=== PATIENT | female | born 1990 | race Caucasian/White ===

== ENCOUNTER → 2017-04-04 | Outpatient (REF) | payer BC ==
[~2017-04-04] MED LIST: MEDR15VL IM
== END ==
LOC: M LAB REF 13:09
PROVIDERS: ATTEND Physician Assistant
DX: R30.0 Dysuria (principal)

== ENCOUNTER 2017-05-20 06:08 | Day surgery (SDC) | payer BC ==
[~2017-05-20] VITALS: Ht 167.6 cm; Wt 59.0 kg
[2017-05-20] MEDS ORDERED: LR 1,000 ML IV ONE (06:30)
[2017-05-20 06:36] LABS: CONTROL LINE UCG INT CTR LINE PRESENT
[2017-05-20] MEDS ORDERED: LIDOCAINE W/EPINEPHRINE 1% 20ML VIAL As Ordered ONE (07:13)
[2017-05-20] MEDS ORDERED: CIPRODEX OTIC SUSP 7.5ML As Ordered ONE (07:13)
[2017-05-20] MEDS ORDERED: EPINEPHrine 1MG/ML INJ 30ML MD-VIAL As Ordered ONE (07:13)
[2017-05-20] MEDS ORDERED: fentaNYL 100 MCG/2 ML INJECTION (J3010) As Ordered ONE ×2 (07:57→08:00)
[2017-05-20] MEDS ORDERED: MIDAZOLAM INJ 2 MG/2 ML VIAL (J2250) As Ordered ONE (07:57)
[2017-05-20] MEDS ORDERED: METOCLOPRAMIDE INJ 10MG/2ML VIAL (J2765) As Ordered ONE (07:57)
[2017-05-20] MEDS ORDERED: dexameTHASONE 4 MG/ML 1ML VIAL (J1100) As Ordered ONE (07:58)
[2017-05-20] MEDS ORDERED: PROPOFOL 200 MG/20 ML VIAL As Ordered ONE (08:00)
[2017-05-20] MEDS ORDERED: LIDOCAINE 2% INJ 100 MG/5 ML SDV (FOR ANES.) As Ordered ONE (08:00)
[2017-05-20] MEDS ORDERED: ACETAMINOPHEN/CODEINE 12.5 ML UDC As Ordered ONE (09:17)
[2017-05-20] MEDS ORDERED: PERCOCET 5MG/325MG TAB PO PRN (09:45)
[2017-05-20] MEDS ORDERED: LR 1,000 ML IV SCH ×2 (09:45)
[2017-05-20] MEDS ORDERED: fentaNYL 100 MCG/2 ML INJECTION (J3010) IV PRN (09:45)
[2017-05-20] MEDS ORDERED: ONDANSETRON 4MG/2ML VIAL (J2405) IV PRN (09:45)
[2017-05-20] MEDS ORDERED: HYDROmorphone HCL 1 MG/ML SYRINGE (J1170) IV PRN (09:45)
[2017-05-20] MEDS ORDERED: ACETAMINOPHEN/CODEINE 12.5 ML UDC PO PRN (10:00)
[2017-05-20 12:10] VITALS: BP 112/57
--- NOTE | 2017-05-20 15:08 | RO ---
DATE OF PROCEDURE: 05/20/2017 PREPROCEDURE DIAGNOSIS: Chronic left tympanic membrane perforation. POSTPROCEDURE DIAGNOSIS: Chronic left tympanic membrane perforation. PROCEDURE: Left tympanostomy. SURGEON: Henrik Vicente MD [place] RE[employer]SE WINDER: ANESTHESIA: General. DESCRIPTION OF PROCEDURE: Under general anesthesia with the patient intubated, the patient was draped in the usual manner. I infiltrated the ear with the lidocaine and epinephrine, cleaned with ear with Betadine and saline. There was a small posterior perforation. I made a posterior tympanotomy incision. I elevated the flap. I dissected the flap. I filled the middle ear with Ciprodex. I then made a postauricular incision. I harvested a temporalis fascia graft. I cut it to the appropriate size. I then tucked that beneath the tympanic membrane and then returned the flaps to the original position. I covered the lateral aspect of the drum with Gelfoam. I closed the postauricular incision with #3-0 chromic, #3-0 Prolene. otopore was put in the ear canal. Less than 1 mL estimated blood loss. The patient tolerated the procedure well and was extubated and transferred to the recovery room in excellent condition. GENEVIEVE
== END 2017-05-20 12:15 | disposition home or self-care (01) ==
LOC: M SDC 06:08
PROVIDERS: ATTEND Otolaryngology
DX: H72.2X2 Other marginal perforations of tympanic membrane, left ear (principal); J45.909 Unspecified asthma, uncomplicated; Z88.8 Allergy status to other drugs, medicaments and biological substances; Z79.3 Long term (current) use of hormonal contraceptives
CPT/HCPCS: 69631; 84703; J1100; J2250; J2765; J3010

== ENCOUNTER → 2017-09-30 | Outpatient (REF) | payer BC | LOC: M LAB REF 12:13 | DX: J02.9 Acute pharyngitis, unspecified (principal) | CPT/HCPCS: 87081 ==

== ENCOUNTER → 2018-03-26 | Outpatient (CLI) | payer BC | LOC: M WUC 17:14 | DX: R53.83 Other fatigue (principal); Z53.9 Procedure and treatment not carried out, unspecified reason | CPT/HCPCS: 36415 ==

== ENCOUNTER → 2018-03-27 | Outpatient (CLI) | payer BC ==
[2018-03-27 18:15] LABS: BASO % 0.6 % (0.0-1.0); EOS # 0.2 10^3/uL (0.0-0.50); EOS % 2.5 % (0.0-3.0); HEMATOCRIT 46.6 % (36.0-47.0); HEMOGLOBIN 15.2 g/dl (12.0-15.5); IMMATURE GRANULOCYTE % 0.1 % (0-3.0); LYMPH # 2.6 10^3/uL (1.5-6.5); MEAN CORPUSCULAR HEMOGLOBIN 29.7 pg (27.0-33.0); MEAN CORPUSCULAR HGB CONC 32.6 g/dl (32.0-36.5); MEAN CORPUSCULAR VOLUME 91.2 fl (80.0-96.0); MONO # 0.4 10^3/uL (0.0-0.8); MONO % 6.1 % (0.0-5.0); NEUTROPHILS # 3.9 10^3/uL (1.8-7.7); NEUTROPHILS % 54.7 % (36.0-66.0); PLATELET COUNT, AUTOMATED 232 10^3/uL (150-450); RED BLOOD COUNT 5.11 10^6/uL (4.00-5.40); RED CELL DISTRIBUTION WIDTH 12.7 % (11.5-14.5); WHITE BLOOD COUNT 7.1 10^3/uL (4.0-10.0)
== END ==
LOC: M SMT 13:24
DX: R53.83 Other fatigue (principal)
CPT/HCPCS: 84443

== ENCOUNTER 2018-04-30 07:33 | Day surgery (SDC) | payer BC ==
[2018-04-30] MEDS: LR 1,000 ML IV (08:07)
[2018-04-30 08:25] LABS: CONTROL LINE UCG INT CTR LINE PRESENT; URINE PREG TEST NEGATIVE (NEGATIVE)
[2018-04-30] MEDS ORDERED: ONDANSETRON 4MG/2ML VIAL (J2405) As Ordered (09:22)
[2018-04-30] MEDS ORDERED: LIDOCAINE 2% INJ 100 MG/5 ML SDV (FOR ANES.) As Ordered (09:22)
[2018-04-30] MEDS ORDERED: PROPOFOL 200 MG/20 ML VIAL As Ordered (09:22)
[2018-04-30] MEDS ORDERED: dexameTHASONE 4 MG/ML 1ML VIAL (J1100) As Ordered ×2 (09:22→09:52)
[2018-04-30] MEDS ORDERED: MIDAZOLAM INJ 2 MG/2 ML VIAL (J2250) As Ordered (09:52)
[2018-04-30] MEDS ORDERED: fentaNYL 100 MCG/2 ML INJECTION (J3010) As Ordered ×2 (09:52→10:36)
[2018-04-30] MEDS ORDERED: METOCLOPRAMIDE INJ 10MG/2ML VIAL (J2765) As Ordered (10:10)
[2018-04-30] MEDS: LIDOCAINE W/EPINEPHRINE 1% 20ML VIAL As Ordered (10:15)
[2018-04-30] MEDS: CIPRODEX OTIC SUSP 7.5ML As Ordered (10:45)
[2018-04-30] MEDS: EPINEPHrine 1MG/ML INJ 30ML MD-VIAL As Ordered (10:45)
[2018-04-30] MEDS ORDERED: ACETAMINOPHEN/CODEINE 300MG/30MG 12.5 ML UDC As Ordered (12:25)
[2018-04-30] MEDS: ACETAMINOPHEN/CODEINE 300MG/30MG 12.5 ML UDC PO (12:28)
[2018-04-30] MEDS ORDERED: HYDROMORPHONE HCL 0.5 MG/ 0.5 ML SYRINGE (J1170 PER 1) IV (12:30)
[2018-04-30] MEDS ORDERED: ACETAMINOPH W/CODEINE #3 TAB UD PO (12:30)
[2018-04-30] MEDS ORDERED: PERCOCET 5MG/325MG TAB PO (12:30)
[2018-04-30] MEDS ORDERED: ONDANSETRON 4MG/2ML VIAL (J2405) IV (12:30)
[2018-04-30] MEDS ORDERED: LR 1,000 ML IV ×2 (12:30)
[2018-04-30] MEDS ORDERED: fentaNYL 100 MCG/2 ML INJECTION (J3010) IV (12:30)
[2018-04-30] MEDS ORDERED: ACETAMINOPHEN/CODEINE 300MG/30MG 12.5 ML UDC PO (13:15)
== END 2018-04-30 14:50 | disposition home or self-care (01) ==
LOC: M SDC 07:33
DX: H72.92 Unspecified perforation of tympanic membrane, left ear (principal); K59.00 Constipation, unspecified; G43.909 Migraine, unspecified, not intractable, without status migrainosus; J45.909 Unspecified asthma, uncomplicated
CPT/HCPCS: 69631

== ENCOUNTER → 2018-07-10 | Outpatient (REF) | payer BC | LOC: M LAB REF 12:40 | DX: R30.0 Dysuria (principal) | CPT/HCPCS: 87186 ==

== ENCOUNTER → 2018-08-24 | Outpatient (REF) | payer BC ==
[~2018-08-24] MED LIST changes: +MEDR150I10 IM; -MEDR15VL IM
[2018-08-24 14:27] LABS: CHLAMYDIA DNA AMPLIFICATION NEGATIVE (NEGATIVE); GC DNA AMPLIFICATION NEGATIVE (NEGATIVE)
== END ==
LOC: M LAB REF 11:54
PROVIDERS: ATTEND Physician Assistant
DX: R82.79 Other abnormal findings on microbiological examination of urine (principal)

== ENCOUNTER → 2020-02-11 | Outpatient (CLI) | payer BC ==
[2020-02-11 09:52] LABS: BASO % 0.5 % (0.0-1.0); EOS # 0.1 10^3/uL (0.0-0.5); EOS % 1.2 % (0.0-3.0); HEMATOCRIT 42.5 % (36.0-47.0); HEMOGLOBIN 13.8 g/dl (12.0-15.5); LYMPH # 1.9 10^3/uL (1.5-5.0); LYMPH % 24.8 % (24.0-44.0); MEAN CORPUSCULAR HEMOGLOBIN 29.6 pg (27.0-33.0); MEAN CORPUSCULAR HGB CONC 32.5 g/dl (32.0-36.5); MONO # 0.4 10^3/uL (0.0-0.8); MONO % 5.6 % (0.0-5.0); NEUTROPHILS # 5.2 10^3/uL (1.5-8.5); NEUTROPHILS % 67.6 % (36.0-66.0); PLATELET COUNT, AUTOMATED 193 10^3/uL (150-450); RED BLOOD COUNT 4.67 10^6/uL (4.00-5.40); WHITE BLOOD COUNT 7.7 10^3/uL (4.0-10.0)
[2020-02-11 10:37] LABS: ALBUMIN 4.3 GM/DL (3.2-5.2); ALT/SGPT 22 U/L (12-78); BILIRUBIN,TOTAL 0.7 MG/DL (0.2-1.0); BLOOD UREA NITROGEN 11 MG/DL (7-18); CALCIUM LEVEL 9.5 MG/DL (8.5-10.1); CARBON DIOXIDE LEVEL 24 MEQ/L (21-32); CHLORIDE LEVEL 106 MEQ/L (98-107); FREE T4 1.14 NG/DL (0.76-1.46); GLOMERULAR FILTRATION RATE > 60.0 (>60); GLUCOSE, FASTING 76 MG/DL (70-100); POTASSIUM SERUM 4.3 MEQ/L (3.5-5.1); SODIUM LEVEL 137 MEQ/L (136-145); THYROID STIMULATING HORMONE 0.863 uIU/ML (0.358-3.740); TOTAL 25(OH) VITAMIN D 22.9 NG/ML (30.0-100.0); TOTAL PROTEIN 8.5 GM/DL (6.4-8.2)
== END ==
LOC: M WUC 08:32
PROVIDERS: ATTEND Physician Assistant
DX: F34.1 Dysthymic disorder (principal)

== ENCOUNTER → 2020-02-25 | Outpatient (REF) | payer BC | LOC: M WUC 11:33 | PROVIDERS: ATTEND Nurse Practitioner Family | DX: N39.0 Urinary tract infection, site not specified (principal) ==

== ENCOUNTER → 2020-04-11 | Outpatient (REF) | payer BC ==
[2020-04-11 21:55] LABS: CHLAMYDIA DNA AMPLIFICATION NEGATIVE (NEGATIVE); GC DNA AMPLIFICATION NEGATIVE (NEGATIVE)
== END ==
LOC: M WUC 12:49
PROVIDERS: ATTEND Physician Assistant
DX: R30.0 Dysuria (principal)

== ENCOUNTER → 2020-12-13 | Outpatient (REF) | payer BC | LOC: M WUC 15:58 | PROVIDERS: ATTEND Physician Assistant | DX: R30.0 Dysuria (principal) ==

== ENCOUNTER → 2020-12-16 | Outpatient (REF) | payer BC | LOC: M LAB REF 19:05 | PROVIDERS: ATTEND Nurse Practitioner Family | DX: R30.0 Dysuria (principal) ==

== ENCOUNTER → 2021-06-20 | Outpatient (CLI) | payer BC ==
--- NOTE | 2021-06-20 12:03 | REP ---
INDICATION: DYSPNEA, UNSPECIFIED. COMPARISON: None. TECHNIQUE: PA and lateral FINDINGS: The superior mediastinal structures are midline. The cardiac silhouette is unremarkable in size, shape, and position. The diaphragmatic surfaces of the lungs are regular, and the costophrenic angles are clear. The pulmonary lin are clear. The imaged osseous structures are intact. IMPRESSION: There is no acute cardiopulmonary disease. <Electronically signed by Radames Diaz > 06/20/21 [id number]
== END ==
LOC: M PLAIMG 11:27
PROVIDERS: ATTEND Physician Assistant
DX: R06.00 Dyspnea, unspecified (principal)

== ENCOUNTER → 2021-07-03 | Outpatient (CLI) | payer BC ==
[~2021-07-03] MED LIST changes: +METHACHOLINE KIT (J7674) INH ONE
--- NOTE | 2021-07-03 13:09 | PFTRPT ---
Site: [facility], [address] [place], [address] ID: [id number] Name: LYNETTE LANG Visit Date: 07/03/2021 Second ID: [id number] Referring Doctor: FADI Wilkins, Ntae Santiago Reviewing Doctor: Pratik Saleh MD Candle Molder Hand: Rao PACHECO RRT Age: 31 : 1990 Sex: Female Race: Height: 65.50 Inches Weight: 150.00 Lbs BSA: 1.76 Order IDs: [id number] Requested Test(s): <RESP-PFT.METH CHAL> Diagnosis: R06.00 of albuterol for post bronchodilator. Review Status: Not Reviewed Pre-Bronch Post-Bronch Pred Actual %Pred Actual %Chng SPIROMETRY FVC (L) 3.96 3.56 89 3.59 FEV1 (L) 3.33 3.09 92 3.01 -2 FEV1/FVC (%) 84 87 103 84 -3 FEF 25% (L/sec) 5.85 6.12 104 5.53 -9 FEF 50% (L/sec) 4.49 4.50 100 4.12 -8 FEF 75% (L/sec) 1.89 1.62 85 1.48 -9 FEF 25-75% (L/sec) 3.54 3.52 99 3.32 -5 FEF Max (L/sec) 7.24 6.14 84 5.71 -6 FIVC (L) 3.32 3.41 2 FIF 50% (L/sec) 4.05 3.63 89 3.74 3 FIF Max (L/sec) 3.82 3.77 -1 Expiratory Time (sec) 6.31 6.35 Back Extrap Vol (L) 0.12 0.11 -13 Time To FEFmax (sec) 0.116 0.117 1
== END ==
LOC: M CARPUL 12:20
PROVIDERS: ATTEND Physician Assistant
DX: R06.00 Dyspnea, unspecified (principal)
CPT/HCPCS: 94070; 95070; J7674

== ENCOUNTER → 2021-07-10 | Outpatient (REF) | payer BC ==
[~2021-07-10] MED LIST changes: +ADVA230A INH; +AJOV225I SC; +ALBU8.5H INH; +ALIG10.5 PO; +CLAR5SYP5 PO; +IBUP0.77 PO; -METHACHOLINE KIT (J7674) INH ONE; +MIRA3350 PO; +OMEP40CA5 PO; +RIME75TA SL
== END ==
LOC: M WUC 11:03
PROVIDERS: ATTEND Physician Assistant
DX: R30.0 Dysuria (principal)

== ENCOUNTER → 2021-07-31 | Outpatient (CLI) | payer BC ==
[~2021-07-31] MED LIST changes: -ADVA230A INH; -AJOV225I SC; -ALBU8.5H INH; -ALIG10.5 PO; -CLAR5SYP5 PO; -IBUP0.77 PO; -MIRA3350 PO; -OMEP40CA5 PO; -RIME75TA SL
--- NOTE | 2021-07-31 12:32 | REP ---
INDICATION: ABDOMINAL PAIN, ABDOMINAL DISTENSION COMPARISON: None. TECHNIQUE: Upright view of the chest with supine and upright views of the abdomen and pelvis. FINDINGS: Frontal upright view of the chest demonstrates no acute cardiopulmonary process or free air below the diaphragm to suspect pneumoperitoneum. Supine and upright views of the abdomen and pelvis demonstrate nonspecific bowel gas pattern without obstruction or perforation. No organomegaly. No abnormal calcifications. Skeletal structures normal for age. IMPRESSION: Nonspecific bowel gas pattern. <Electronically signed by Yosef Shelton > 07/31/21 [id number]
[2021-07-31 16:08] LABS: BASO % 0.5 % (0.0-1.0); EOS # 0.2 10^3/uL (0.0-0.5); EOS % 2.2 % (0.0-3.0); HEMATOCRIT 41.6 % (36.0-47.0); HEMOGLOBIN 13.5 g/dl (12.0-15.5); LYMPH # 2.3 10^3/uL (1.5-5.0); LYMPH % 30.2 % (24.0-44.0); MEAN CORPUSCULAR HEMOGLOBIN 29.7 pg (27.0-33.0); MEAN CORPUSCULAR HGB CONC 32.5 g/dl (32.0-36.5); MEAN CORPUSCULAR VOLUME 91.6 fl (80.0-96.0); MONO # 0.6 10^3/uL (0.0-0.8); MONO % 7.5 % (2.0-8.0); NEUTROPHILS # 4.6 10^3/uL (1.5-8.5); NEUTROPHILS % 59.2 % (36.0-66.0); PLATELET COUNT, AUTOMATED 257 10^3/uL (150-450); RED BLOOD COUNT 4.54 10^6/uL (4.00-5.40); WHITE BLOOD COUNT 7.8 10^3/uL (4.0-10.0)
[2021-07-31 16:44] LABS: ALBUMIN 4.2 GM/DL (3.2-5.2); ALT/SGPT 26 U/L (12-78); AMYLASE 76 U/L (25-115); BILIRUBIN,TOTAL 0.4 MG/DL (0.2-1.0); BLOOD UREA NITROGEN 8 MG/DL (7-18); CALCIUM LEVEL 9.7 MG/DL (8.5-10.1); CARBON DIOXIDE LEVEL 27 MEQ/L (21-32); CHLORIDE LEVEL 109 MEQ/L (98-107); CREATININE FOR GFR 0.84 MG/DL (0.55-1.30); GLOMERULAR FILTRATION RATE > 60.0 (>60); GLUCOSE, FASTING 87 MG/DL (70-100); HCG, SERUM QUANTITATIVE < 1.0 MIU/ML; LIPASE 246 U/L (73-393); POTASSIUM SERUM 4.2 MEQ/L (3.5-5.1); SODIUM LEVEL 141 MEQ/L (136-145)
== END ==
LOC: M WUC 11:46
PROVIDERS: ATTEND Physician Assistant
DX: R10.84 Generalized abdominal pain (principal); R14.0 Abdominal distension (gaseous)

== ENCOUNTER → 2021-08-01 | Outpatient (CLI) | payer BC ==
--- NOTE | 2021-08-01 10:13 | REP ---
INDICATION: GENERALIZED PAIN TECHNIQUE: Real time B-mode encarnacion scale ultrasound examination using curved array transducer. FINDINGS: Liver, spleen, and pancreas are normal in contour, size, echogenicity, and overall appearance. No focal hepatic, splenic or pancreatic lesions are identified. Gallbladder is normal without gallstones, wall thickening, or pericholecystic fluid. No biliary ductal dilatation is appreciated and the common bile duct measures 2.0 mm in diameter. Splenic index: 267 The bilateral kidneys are normal in reniform shape without hydronephrosis or obvious abnormality. Right kidney measures 9.8 x 4.1 x 4.2 cm. Left kidney measures 11.1 x 3.8 x 4.5 cm. Abdominal aorta appears normal and measures 1.4 cm maximal diameter. No ascites in the visualized abdomen. IMPRESSION: Essentially normal age-appropriate complete abdominal ultrasound. <Electronically signed by Yosef Shelton > 08/01/21 [id number]
== END ==
LOC: M RAD 09:27
PROVIDERS: ATTEND Physician Assistant
DX: R10.84 Generalized abdominal pain (principal); R14.0 Abdominal distension (gaseous)

== ENCOUNTER → 2021-08-07 | Outpatient (CLI) | payer BC ==
[2021-08-07 16:08] LABS: BASO % 0.5 % (0.0-1.0); EOS # 0.1 10^3/uL (0.0-0.5); EOS % 1.2 % (0.0-3.0); HEMATOCRIT 41.6 % (36.0-47.0); HEMOGLOBIN 13.5 g/dl (12.0-15.5); LYMPH # 2.3 10^3/uL (1.5-5.0); LYMPH % 34.8 % (24.0-44.0); MEAN CORPUSCULAR HEMOGLOBIN 29.2 pg (27.0-33.0); MEAN CORPUSCULAR HGB CONC 32.5 g/dl (32.0-36.5); MONO # 0.4 10^3/uL (0.0-0.8); MONO % 6.5 % (2.0-8.0); NEUTROPHILS # 3.8 10^3/uL (1.5-8.5); NEUTROPHILS % 56.7 % (36.0-66.0); PLATELET COUNT, AUTOMATED 235 10^3/uL (150-450); RED BLOOD COUNT 4.62 10^6/uL (4.00-5.40); WHITE BLOOD COUNT 6.7 10^3/uL (4.0-10.0)
[2021-08-07 16:46] LABS: ALBUMIN 4.3 GM/DL (3.2-5.2); ALT/SGPT 21 U/L (12-78); BILIRUBIN,DIRECT 0.2 MG/DL (0.0-0.2); BILIRUBIN,TOTAL 0.5 MG/DL (0.2-1.0); BLOOD UREA NITROGEN 9 MG/DL (7-18); CALCIUM LEVEL 10.3 MG/DL (8.5-10.1); CARBON DIOXIDE LEVEL 26 MEQ/L (21-32); CHLORIDE LEVEL 106 MEQ/L (98-107); CREATININE FOR GFR 0.76 MG/DL (0.55-1.30); FREE T4 1.27 NG/DL (0.76-1.46); GLOMERULAR FILTRATION RATE > 60.0 (>60); GLUCOSE, FASTING 78 MG/DL (70-100); LIPASE 200 U/L (73-393); POTASSIUM SERUM 3.9 MEQ/L (3.5-5.1); SODIUM LEVEL 142 MEQ/L (136-145); TOTAL PROTEIN 8.1 GM/DL (6.4-8.2)
== END ==
LOC: M WUC 14:48
PROVIDERS: ATTEND Physician Assistant
DX: R10.13 Epigastric pain (principal)

== ENCOUNTER → 2021-09-15 | Outpatient (CLI) | payer BC ==
[~2021-09-15] MED LIST changes: +ADVA230A INH; +AJOV225I SC; +ALBU8.5H INH; +ALIG10.5 PO; +CLAR5SYP5 PO; +IBUP0.77 PO; +MIRA3350 PO; +OMEP40CA5 PO; +RIME75TA SL
== END ==
LOC: M LABSMTC 10:03
PROVIDERS: ATTEND Anesthesiology
DX: Z01.818 Encounter for other preprocedural examination (principal); Z11.52 Encounter for screening for COVID-19

== ENCOUNTER 2021-09-20 11:51 | Day surgery (SDC) | payer BC ==
[~2021-09-20] VITALS: Ht 165.1 cm; Wt 67.5 kg
[~2021-09-20 11:51] MED LIST changes: +NS 1,000 ML IV ONE
[2021-09-20] MEDS ORDERED: propofoL 200 MG/20 ML VIAL As Ordered ONE (13:30)
[2021-09-20] MEDS ORDERED: GLYCOPYRROLATE INJ 0.2 MG/ML 2 ML VIAL As Ordered ONE (13:30)
[2021-09-20] MEDS ORDERED: LIDOCAINE 2% 100MG/5ML SDV (FOR ANES.) As Ordered ONE (13:30)
[2021-09-20 14:15] VITALS: BP 113/76
== END 2021-09-20 14:19 | disposition home or self-care (01) ==
LOC: M OPP 11:51
PROVIDERS: ATTEND Surgery
DX: K52.9 Noninfective gastroenteritis and colitis, unspecified (principal); K63.5 Polyp of colon; K21.9 Gastro-esophageal reflux disease without esophagitis; J45.909 Unspecified asthma, uncomplicated; Z87.440 Personal history of urinary (tract) infections; Z79.899 Other long term (current) drug therapy; Z88.0 Allergy status to penicillin

== ENCOUNTER → 2021-10-13 | Outpatient (CLI) | payer BC ==
[~2021-10-13] MED LIST changes: -NS 1,000 ML IV ONE
== END ==
LOC: M LABSMTC 10:33
PROVIDERS: ATTEND Anesthesiology
DX: Z01.818 Encounter for other preprocedural examination (principal); Z11.52 Encounter for screening for COVID-19

== ENCOUNTER → 2021-10-17 | Outpatient (CLI) | payer BC ==
[~2021-10-17] MED LIST changes: +FLON1SPR NARES; +GASTROGRAFIN SOLUTION 30ML (Q9963) ONE; +ISOVUE-370 76% 100ML VIAL ONE
== END ==
LOC: M PLAIMG 10:53
PROVIDERS: ATTEND Physician Assistant
DX: R10.84 Generalized abdominal pain (principal)

== ENCOUNTER 2021-10-18 07:42 | Day surgery (SDC) | payer BC ==
[~2021-10-18] VITALS: Ht 165.1 cm; Wt 66.9 kg
[~2021-10-18 07:42] MED LIST changes: -FLON1SPR NARES; -GASTROGRAFIN SOLUTION 30ML (Q9963) ONE; -ISOVUE-370 76% 100ML VIAL ONE; +LIDOCAINE 1% MDV 20ML VIAL SQ PRN; +LR 1,000 ML IV ONE
[2021-10-18] MEDS ORDERED: FLON1SPR NARES (08:12)
[2021-10-18] MEDS ORDERED: ACETAMINOPHEN 1000MG 100ML IV BTL (OFIRMEV) (J0131 PER 10MG) As Ordered ONE (09:30)
[2021-10-18] MEDS ORDERED: MIDAZOLAM INJ 2MG/2ML VIAL (J2250 PER 1MG) As Ordered ONE (09:30)
[2021-10-18] MEDS ORDERED: LIDOCAINE 2% 100MG/5ML SDV (FOR ANES.) As Ordered ONE (09:30)
[2021-10-18] MEDS ORDERED: fentaNYL 100 MCG/2 ML INJECTION As Ordered ONE ×2 (09:30→13:19)
[2021-10-18] MEDS ORDERED: dexameTHASONE 4 MG/ML 1ML VIAL (J1100 PER 1MG) As Ordered ONE (09:30)
[2021-10-18] MEDS ORDERED: ROCURONIUM BROMIDE 50 MG/5 ML VIAL As Ordered ONE (09:30)
[2021-10-18] MEDS ORDERED: propofoL 200 MG/20 ML VIAL As Ordered ONE (09:30)
[2021-10-18] MEDS ORDERED: ONDANSETRON 4MG/2ML VIAL As Ordered ONE (09:30)
[2021-10-18] MEDS ORDERED: KETOROLAC 60MG 2ML VIAL As Ordered ONE (09:30)
[2021-10-18] MEDS ORDERED: SUGAMMADEX SODIUM 500 MG/5 ML VIAL (BRIDION) As Ordered ONE (09:30)
[2021-10-18] MEDS ORDERED: oxyCODONE 5MG TAB PO PRN (13:30)
[2021-10-18] MEDS ORDERED: ONDANSETRON 4MG/2ML VIAL IV PRN (13:30)
[2021-10-18] MEDS ORDERED: fentaNYL 100 MCG/2 ML INJECTION IV PRN (13:30)
[2021-10-18] MEDS ORDERED: LR 1,000 ML IV SCH ×2 (13:30→14:15)
[2021-10-18] MEDS ORDERED: IBUPROFEN 600MG TAB PO PRN (14:15)
[2021-10-18] MEDS ORDERED: NORCO, ANEXSIA 5/325MG TABLET (HYDROcodone/ACETAMINOPHEN) PO PRN (14:15)
[2021-10-18 15:22] VITALS: BP 116/66
== END 2021-10-18 15:42 | disposition home or self-care (01) ==
LOC: M SDC 07:42
PROVIDERS: ATTEND Obstetrics & Gynecology
DX: Z30.2 Encounter for sterilization (principal); G43.909 Migraine, unspecified, not intractable, without status migrainosus; Z88.8 Allergy status to other drugs, medicaments and biological substances; Z79.899 Other long term (current) drug therapy
CPT/HCPCS: 58670; 81025; J0131; J1100; J1885; J2250; J2405; J3010

== ENCOUNTER → 2021-11-27 | Outpatient (REF) | payer BC ==
[~2021-11-27] MED LIST changes: +FLON1SPR NARES; -LIDOCAINE 1% MDV 20ML VIAL SQ PRN; -LR 1,000 ML IV ONE
== END ==
LOC: M LAB REF 17:02
PROVIDERS: ATTEND Physician Assistant
DX: R30.0 Dysuria (principal)

== ENCOUNTER → 2021-11-28 | Outpatient (REF) | payer BC ==
[2021-11-28 16:44] LABS: FREE T4 1.08 NG/DL (0.76-1.46); THYROID STIMULATING HORMONE 0.896 uIU/ML (0.358-3.740)
== END ==
LOC: M WUC 15:41
PROVIDERS: ATTEND Physician Assistant
DX: R61 Generalized hyperhidrosis (principal)

== ENCOUNTER → 2021-12-13 | Outpatient (REF) | payer BC | LOC: M WUC 12:32 | PROVIDERS: ATTEND Physician Assistant Medical | DX: R30.0 Dysuria (principal) ==

== ENCOUNTER → 2021-12-25 | Outpatient (REF) | payer BC | LOC: M SMT 13:06 | PROVIDERS: ATTEND Nurse Practitioner Women's Health | DX: R31.0 Gross hematuria (principal) ==

== ENCOUNTER → 2022-04-29 | Outpatient (REF) | payer BC | LOC: M LAB REF 16:12 | PROVIDERS: ATTEND Physician Assistant | DX: R30.0 Dysuria (principal) ==

== ENCOUNTER → 2022-05-13 | Outpatient (REF) | payer BC | LOC: M PLALAB 15:09 | PROVIDERS: ATTEND Obstetrics & Gynecology | DX: Z01.419 Encounter for gynecological examination (general) (routine) without abnormal findings (principal) ==

== ENCOUNTER → 2023-08-08 | Outpatient (REF) | payer BC ==
[~2023-08-08] MED LIST changes: -MEDR150I10 IM; +MEDR150I13 IM
== END ==
LOC: M SFHCWAGY 15:44
PROVIDERS: ATTEND Nurse Practitioner Family
DX: Z12.4 Encounter for screening for malignant neoplasm of cervix (principal); R87.810 Cervical high risk human papillomavirus (HPV) DNA test positive

== ENCOUNTER → 2023-09-03 | Outpatient (REF) | payer BC | LOC: M PLALAB 13:20 | PROVIDERS: ATTEND Obstetrics & Gynecology | DX: R87.89 Other abnormal findings in specimens from female genital organs (principal) ==

== ENCOUNTER → 2023-09-19 | Outpatient (CLI) | payer BC ==
[2023-09-19 15:57] LABS: BASO % 0.5 % (0.0-1.0); EOS # 0.2 10^3/uL (0.0-0.5); EOS % 2.8 % (0.0-3.0); HEMATOCRIT 41.2 % (36.0-47.0); HEMOGLOBIN 13.4 g/dl (12.0-15.5); LYMPH # 1.7 10^3/uL (1.5-5.0); LYMPH % 27.8 % (24.0-44.0); MEAN CORPUSCULAR HEMOGLOBIN 29.6 pg (27.0-33.0); MEAN CORPUSCULAR HGB CONC 32.5 g/dl (32.0-36.5); MEAN CORPUSCULAR VOLUME 91.2 fl (80.0-96.0); MONO # 0.4 10^3/uL (0.0-0.8); MONO % 5.7 % (2.0-8.0); NEUTROPHILS # 3.9 10^3/uL (1.5-8.5); NEUTROPHILS % 62.9 % (36.0-66.0); PLATELET COUNT, AUTOMATED 278 10^3/uL (150-450); RED BLOOD COUNT 4.52 10^6/uL (4.00-5.40); WHITE BLOOD COUNT 6.2 10^3/uL (4.0-10.0)
[2023-09-19 16:00] LABS: ALBUMIN 4.1 G/DL (3.2-5.2); ALKALINE PHOSPHATASE 61 U/L (46-116); ALT/SGPT 21 U/L (7.0-40); AST/SGOT 16 U/L (<34); BILIRUBIN,TOTAL 0.6 MG/DL (0.3-1.2); BLOOD UREA NITROGEN 11 MG/DL (9-23); CALCIUM LEVEL 9.3 MG/DL (8.5-10.1); CARBON DIOXIDE LEVEL 26 MMOL/L (20-31); CHLORIDE LEVEL 105 MMOL/L (98-107); CREATININE FOR GFR 0.66 MG/DL (0.55-1.30); FOLLICLE STIMULATING HORMONE 7.8 mIU/ML; GLOMERULAR FILTRATION RATE > 60.0 (>60); GLUCOSE, FASTING 79 MG/DL (60-100); LUTEINIZING HORMONE 1.8 mIU/ML; SODIUM LEVEL 137 MMOL/L (136-145); THYROID STIMULATING HORMONE 0.841 uIU/ML (0.55-4.78); TOTAL PROTEIN 7.8 G/DL (5.7-8.2)
[2023-09-19 16:03] LABS: FREE T4 1.07 NG/DL (0.89-1.76)
[2023-09-19 17:06] LABS: HEMOGLOBIN A1c 4.8 % (4.0-6.0)
== END ==
LOC: M PLALAB 12:05
PROVIDERS: ATTEND Physician Assistant
DX: R53.83 Other fatigue (principal)

== ENCOUNTER → 2023-11-25 | Outpatient (CLI) | payer BC | LOC: M WHC 13:38 | PROVIDERS: ATTEND Obstetrics & Gynecology | DX: N93.9 Abnormal uterine and vaginal bleeding, unspecified (principal) ==

== ENCOUNTER → 2024-04-27 | Outpatient (CLI) | payer BC ==
[~2024-04-27] MED LIST changes: +FLUO20SO15 PO; +MELA5TAB47 PO
[2024-04-27 15:24] LABS: APPEARANCE, URINE CLEAR (CLEAR); BACTERIA, URINE AUTO NEGATIVE (NEGATIVE); BILIRUBIN, URINE AUTO NEGATIVE (NEGATIVE); BLOOD, URINE BLOOD NEGATIVE (NEGATIVE); COLOR, URINE YELLOW (YELLOW); GLUCOSE, URINE (UA) AUTO NEGATIVE (NEGATIVE); KETONE, URINE AUTO NEGATIVE (NEGATIVE); LEUKOCYTE ESTERASE, URINE AUTO NEGATIVE (NEGATIVE); NITRITE, URINE AUTO NEGATIVE (NEGATIVE); PROTEIN, URINE AUTO NEGATIVE (NEGATIVE); RBC, URINE AUTO 0 /HPF (0-3); SPECIFIC GRAVITY URINE AUTO 1.009 (1.002-1.035); SQUAMOUS EPITHELIAL CELL UR AU 1 /HPF (0-6); UROBILINOGEN, URINE AUTO 0.2 mg/dL (0.0-2.0); WBC, URINE AUTO 0 /HPF (0-3)
[2024-04-27 15:51] LABS: BASO % 0.5 % (0.0-1.0); EOS # 0.1 10^3/uL (0.0-0.5); EOS % 1.9 % (0.0-3.0); HEMATOCRIT 42.1 % (36.0-47.0); HEMOGLOBIN 13.4 g/dl (12.0-15.5); LYMPH # 1.8 10^3/uL (1.5-5.0); LYMPH % 30.1 % (24.0-44.0); MEAN CORPUSCULAR HEMOGLOBIN 28.9 pg (27.0-33.0); MEAN CORPUSCULAR HGB CONC 31.8 g/dl (32.0-36.5); MEAN CORPUSCULAR VOLUME 90.9 fl (80.0-96.0); MONO # 0.5 10^3/uL (0.0-0.8); MONO % 7.8 % (2.0-8.0); NEUTROPHILS # 3.5 10^3/uL (1.5-8.5); NEUTROPHILS % 59.5 % (36.0-66.0); PLATELET COUNT, AUTOMATED 237 10^3/uL (150-450); RED BLOOD COUNT 4.63 10^6/uL (4.00-5.40); WHITE BLOOD COUNT 5.9 10^3/uL (4.0-10.0)
[2024-04-27 16:21] LABS: ALKALINE PHOSPHATASE 68 U/L (46-116); ALT/SGPT 24 U/L (7.0-40); AST/SGOT 17 U/L (<34); BILIRUBIN,TOTAL 0.7 MG/DL (0.3-1.2); BLOOD UREA NITROGEN 7 MG/DL (9-23); CALCIUM LEVEL 10.1 MG/DL (8.5-10.1); CARBON DIOXIDE LEVEL 25 MMOL/L (20-31); CHLORIDE LEVEL 107 MMOL/L (98-107); CREATININE FOR GFR 0.67 MG/DL (0.55-1.30); GLOMERULAR FILTRATION RATE > 60.0 (>60); GLUCOSE, FASTING 83 MG/DL (60-100); POTASSIUM SERUM 4.5 MMOL/L (3.5-5.1); SODIUM LEVEL 138 MMOL/L (136-145); TOTAL PROTEIN 7.7 G/DL (5.7-8.2)
== END ==
LOC: M PLALAB 12:09
PROVIDERS: ATTEND Physician Assistant
DX: Z01.818 Encounter for other preprocedural examination (principal)

== ENCOUNTER 2024-05-07 06:19 | Day surgery (SDC) | payer BC ==
[~2024-05-07] VITALS: Ht 166.4 cm; Wt 68.9 kg
[2024-05-07 06:59] LABS: HEMATOCRIT 39.6 % (36.0-47.0); HEMOGLOBIN 13.1 g/dl (12.0-15.5); MEAN CORPUSCULAR HEMOGLOBIN 29.4 pg (27.0-33.0); MEAN CORPUSCULAR HGB CONC 33.1 g/dl (32.0-36.5); PLATELET COUNT, AUTOMATED 266 10^3/uL (150-450); RED BLOOD COUNT 4.45 10^6/uL (4.00-5.40); WHITE BLOOD COUNT 6.7 10^3/uL (4.0-10.0)
[2024-05-07] MEDS: METHYLENE BLUE 0.5% (5MG/ML) 10 ML AMP (PROVAYBLUE) As Ordered ONE (07:11)
[2024-05-07] MEDS ORDERED: fentaNYL 100 MCG/2 ML INJECTION As Ordered ONE (07:13)
[2024-05-07] MEDS ORDERED: ROCURONIUM BROMIDE 50MG/5ML VIAL As Ordered ONE (07:13)
[2024-05-07] MEDS ORDERED: LIDOCAINE 2% 100MG/5ML SDV (FOR ANES.) As Ordered ONE (07:13)
[2024-05-07] MEDS ORDERED: MIDAZOLAM INJ 2MG/2ML VIAL As Ordered ONE (07:13)
[2024-05-07] MEDS ORDERED: propofoL 200 MG/20 ML VIAL As Ordered ONE (07:13)
[2024-05-07] MEDS ORDERED: ACETAMINOPHEN 1000MG 100ML IV BAG As Ordered ONE (07:14)
[2024-05-07] MEDS ORDERED: KETOROLAC 60MG 2ML VIAL As Ordered ONE (07:14)
[2024-05-07] MEDS ORDERED: SUGAMMADEX SODIUM 500 MG/5 ML VIAL (BRIDION) As Ordered ONE (07:14)
[2024-05-07] MEDS ORDERED: ONDANSETRON 4MG 2ML VIAL As Ordered ONE (07:14)
[2024-05-07] MEDS: LR 1,000 ML IV SCH (07:19)
[2024-05-07] MEDS: ceFAZolin SOD 2 GM in IV 1 EA IV ONE (08:00)
[2024-05-07] MEDS: SCOPOLAMINE 1MG TRANSDERMAL PATCH As Ordered ONE (08:15)
[2024-05-07] MEDS ORDERED: fentaNYL 100 MCG/2 ML INJECTION IV PRN (09:45)
[2024-05-07] MEDS ORDERED: LR 1,000 ML IV SCH (09:45)
[2024-05-07] MEDS ORDERED: ONDANSETRON 4MG 2ML VIAL IV PRN (09:45)
[2024-05-07] MEDS: HYDROMORPHONE HCL 0.5 MG/ 0.5 ML SYRINGE IV PRN (10:38)
[2024-05-07] MEDS ORDERED: PERCOCET 5MG/325MG TAB PO PRN ×2 (10:40)
[2024-05-07] MEDS: oxyCODONE 5MG TAB PO PRN (11:22)
[2024-05-07 13:22] VITALS: BP 109/57; TEMP 98.2; O2SAT 95
== END 2024-05-07 14:26 | disposition home or self-care (01) ==
LOC: M SDC 06:19
PROVIDERS: ATTEND Obstetrics & Gynecology
DX: N87.0 Mild cervical dysplasia (principal); N83.02 Follicular cyst of left ovary; Z88.8 Allergy status to other drugs, medicaments and biological substances; Z79.899 Other long term (current) drug therapy
CPT/HCPCS: 36415; 58571; 58662; 81025; 85027; 86850; 86900; 86901; 88305; 88307; J0131; J0665; J0690; J1100; J1170; J1885; J2250; J2405; J3010; S2900

== ENCOUNTER → 2024-10-25 | Outpatient (REF) | payer BC | LOC: M SFHCWAGY 13:06 | PROVIDERS: ATTEND Nurse Practitioner Family | DX: Z12.72 Encounter for screening for malignant neoplasm of vagina (principal); Z11.51 Encounter for screening for human papillomavirus (HPV); Z77.9 Other contact with and (suspected) exposures hazardous to health; Z12.4 Encounter for screening for malignant neoplasm of cervix; Z01.419 Encounter for gynecological examination (general) (routine) without abnormal findings ==

== ENCOUNTER → 2025-01-01 | Outpatient (CLI) | payer BC ==
[2025-01-01 11:48] LABS: BASO % 0.6 % (0.0-1.0); EOS # 0.2 10^3/uL (0.0-0.5); EOS % 2.6 % (0.0-3.0); HEMOGLOBIN 14.8 g/dl (12.0-15.5); LYMPH # 2.1 10^3/uL (1.5-5.0); MEAN CORPUSCULAR HEMOGLOBIN 29.1 pg (27.0-33.0); MEAN CORPUSCULAR HGB CONC 32.9 g/dl (32.0-36.5); MEAN CORPUSCULAR VOLUME 88.6 fl (80.0-96.0); MONO # 0.4 10^3/uL (0.0-0.8); MONO % 6.4 % (2.0-8.0); NEUTROPHILS # 3.6 10^3/uL (1.5-8.5); NEUTROPHILS % 57.2 % (36.0-66.0); PLATELET COUNT, AUTOMATED 217 10^3/uL (150-450); RED BLOOD COUNT 5.08 10^6/uL (4.00-5.40); WHITE BLOOD COUNT 6.2 10^3/uL (4.0-10.0)
[2025-01-01 12:00] LABS: ERYTHROCYTE SEDIMENTATION RATE 36 mm/hr (0-20)
[2025-01-01 12:15] LABS: ALBUMIN 4.3 G/DL (3.2-5.2); ALKALINE PHOSPHATASE 68 U/L (35-104); ALT/SGPT 25 U/L (7.0-40); AST/SGOT 21 U/L (<34); BILIRUBIN,TOTAL 0.6 MG/DL (0.3-1.2); BLOOD UREA NITROGEN 12 MG/DL (9-23); C REACTIVE PROTEIN QUANTITATIV < 0.50 MG/DL (<1.0); CALCIUM LEVEL 9.6 MG/DL (8.5-10.1); CARBON DIOXIDE LEVEL 23 MMOL/L (20-31); CHLORIDE LEVEL 103 MMOL/L (98-107); CREATININE FOR GFR 0.64 MG/DL (0.55-1.30); GLOMERULAR FILTRATION RATE > 90.0 (>60); GLUCOSE, FASTING 78 MG/DL (60-100); POTASSIUM SERUM 4.1 MMOL/L (3.5-5.1); SODIUM LEVEL 139 MMOL/L (136-145); TOTAL PROTEIN 8.1 G/DL (5.7-8.2)
[2025-01-01 12:16] LABS: FOLLICLE STIMULATING HORMONE 2.8 mIU/ML; THYROID STIMULATING HORMONE 1.422 uIU/ML (0.55-4.78)
[2025-01-01 12:17] LABS: FREE T4 0.93 NG/DL (0.89-1.76); LUTEINIZING HORMONE 2.9 mIU/ML
[2025-01-01 12:18] LABS: TESTOSTERONE 19 NG/DL (14-76)
[2025-01-04 14:30] LABS: ANA SCREEN, IFA NEGATIVE (NEGATIVE)
== END ==
LOC: M LAB 10:00
PROVIDERS: ATTEND Physician Assistant
DX: R53.83 Other fatigue (principal); Z13.29 Encounter for screening for other suspected endocrine disorder

== ENCOUNTER → 2025-02-23 | Outpatient (CLI) | payer BC | LOC: M PLALAB 16:03 | PROVIDERS: ATTEND Physician Assistant | DX: R70.0 Elevated erythrocyte sedimentation rate (principal) ==

== ENCOUNTER → 2025-03-04 | Outpatient (CLI) | payer BC | LOC: M SOG 06:57 | PROVIDERS: ATTEND Neuromusculoskeletal Medicine, Sports Medicine | DX: M25.532 Pain in left wrist (principal) ==

== ENCOUNTER → 2025-04-21 | Outpatient (CLI) | payer BC | LOC: M PLARAD 08:22 | PROVIDERS: ATTEND Neurological Surgery | DX: G95.0 Syringomyelia and syringobulbia (principal) ==

== ENCOUNTER → 2025-07-27 | Outpatient (CLI) | payer BC ==
[2025-07-27 13:10] LABS: BASO # 0.1 10^3/uL (0.0-0.2); BASO % 0.9 % (0.0-1.0); EOS # 0.2 10^3/uL (0.0-0.5); EOS % 2.6 % (0.0-3.0); LYMPH # 1.9 10^3/uL (1.5-5.0); LYMPH % 33.4 % (24.0-44.0); MONO # 0.5 10^3/uL (0.0-0.8); MONO % 8.0 % (2.0-8.0); NEUTROPHILS # 3.2 10^3/uL (1.5-8.5); NEUTROPHILS % 54.8 % (36.0-66.0); PLATELET COUNT, AUTOMATED 260 10^3/uL (150-450)
[2025-07-27 13:29] LABS: INR 0.9
[2025-07-27 13:53] LABS: FREE T4 1.16 NG/DL (0.89-1.76)
[2025-07-27 13:54] LABS: ALT/SGPT 17 U/L (7.0-40); AST/SGOT 19 U/L (<34); CALCIUM LEVEL 9.0 MG/DL (8.5-10.1); CARBON DIOXIDE LEVEL 28 MMOL/L (20-31); CHLORIDE LEVEL 107 MMOL/L (98-107); CREATININE FOR GFR 0.76 MG/DL (0.55-1.30); GLOMERULAR FILTRATION RATE > 90.0 (>60); POTASSIUM SERUM 4.7 MMOL/L (3.5-5.1); SODIUM LEVEL 144 MMOL/L (136-145)
== END ==
LOC: M PLALAB 11:29
PROVIDERS: ATTEND Physician Assistant
DX: Z01.818 Encounter for other preprocedural examination (principal)